=== PATIENT | male | born 1955 | race Caucasian/White ===

== ENCOUNTER 2017-07-15 08:27 | Emergency (ER) | payer MEDICARE ==
[~2017-07-15] VITALS: Ht 165.1 cm; Wt 78.9 kg
[~2017-07-15 08:27] MED LIST: ALB0.5 INH; CEP500 PO; MUPI15CR10 TP
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
[2017-07-15] MEDS ORDERED: ESCI10TA8 (08:44)
[2017-07-15] MEDS ORDERED: BUSP7.5T7 (08:44)
--- NOTE | 2017-07-15 09:17 | RADIOLOGY IMAGING REPORT ---
FACILITY: [facility] - [place] PATIENT NAME: Tiago Horn : 1955 MR: [id number] V: [id number] EXAM DATE: ORDERING PHYSICIAN: ANTONIO MAYNARD TECHNOLOGIST: Location: [facility] [place] Patient: Tiago Horn : 1955 Visit/Account:[id number] Date of Sevice: 07/15/2017 EXAMINATION: Left knee, 4 views 07/15/2017 8:55 AM HISTORY: Injury COMPARISON: None FINDINGS: Bony structures of left knee are intact without fracture or other acute osseous abnormalit y evident. There is anterior suprapatellar soft tissue swelling. No foreign body. IMPRESSION: Anterior soft tissue swelling. No acute bony injury. Report Dictated By: Hussein Ricardo MD at 07/15/2017 9:11 AM Report E-Signed By: Hussein Ricardo MD at 07/15/2017 9:12 AM WSN:[id number]
[2017-07-15 09:22] VITALS: BP 121/86
== END 2017-07-15 09:25 | disposition home or self-care (01) ==
LOC: ER 08:52
DX: S80.02XA Contusion of left knee, initial encounter (principal); W23.0XXA Caught, crushed, jammed, or pinched between moving objects, initial encounter
CPT/HCPCS: 73564; 99283